=== PATIENT | female | born 1950 | race Caucasian/White ===

== ENCOUNTER → 2017-07-17 | Outpatient (CLI) | payer MEDICARE ==
--- NOTE | 2017-07-17 10:08 | WOMENS IMAGING REPORT ---
EXAM DESCRIPTION: BONE DENSITY HIP/SPINE COMPLETED DATE/TIME: 07/17/2017 8:26 am REASON FOR STUDY: OSTEOPOROSIS Z12.31 ENCNTR SCREEN MAMMOGRAM FOR MALIGNANT NEOPLASM OF CLAIRE M81.0 AGE-RELATED OSTEOPOROSIS W/O CURRENT PATHOLOGICAL FRAC COMPARISON: None. TECHNIQUE: Dual-Energy X-ray Absorptiometry (DEXA) of the AP Spine and Hip. LIMITATIONS: None. FINDINGS: LUMBAR SPINE: The bone mineral density (BMD) measured from L1-L4 in the AP projection correlates with a T-score of -3.1, which is osteoporosis as defined by the World Health Organization. HIP: The bone mineral density (BMD) measured in the left hip correlates with a T-score of -3.2, which is o steoporosis as defined by the World Health Organization. IMPRESSION: 1. LUMBAR SPINE: OSTEOPOROSIS. 2. HIP: OSTEOPOROSIS. COMMENT: The World Health Organization defines low BMD as follows: T-score: Normal: Greater than -1.0 Osteopenia: Between -1.0 and -2.5 Osteoporosis: Less than -2.5 without fractures Established osteoporosis: Less than -2.5 with fractures In general, you may wish to consider: Diagnosis Treatment Follow-up DEXA Normal BMD Prevention 2-3 years Osteopenia Prevention/Therapy 1-2 years Osteoporosis Therapy Yearly TECHNICAL DOCUMENTATION: JOB ID: [id number]- All Rights Reserved
== END ==
LOC: WI 08:03
PROVIDERS: ATTEND Physician Assistant
DX: M81.0 Age-related osteoporosis without current pathological fracture (principal)
CPT/HCPCS: 77080

== ENCOUNTER → 2017-07-24 | Outpatient (CLI) | payer MEDICARE ==
--- NOTE | 2017-07-24 10:42 | RADIOLOGY REPORT (SQ) ---
EXAM DESCRIPTION: U/S ABD AORTIC SCREENING COMPLETED DATE/TIME: 07/24/2017 10:32 am REASON FOR STUDY: TOBACCO USE (Z72.0), PERSONAL HX OF NICOTINE DEPENCENCE (Z87.891) Z72.0 TOBACCO U SE Z87.891 PERSONAL HISTORY OF NICOTINE DEPENDENCE Z12.31 ENCNTR SCREEN MAMMOGRAM FOR MALIGNANT EVERARDO PLASM OF CLAIRE COMPARISON: None. TECHNIQUE: Static and dynamic grayscale images acquired of the aorta and stored on PACs. Selected co elena Doppler and spectral images recorded. LIMITATIONS: None. FINDINGS: AORTIC CALIBER MAXIMAL PROXIMAL: 2.2 cm. MID: 2.1 cm. DISTAL: 1.4 cm. ILIAC DIAMETER RIGHT: 1 cm. LEFT: 0.9 cm. OTHER: No other significant finding. IMPRESSION: NO ABDOMINAL AORTIC ANEURYSM. TECHNICAL DOCUMENTATION: JOB ID: [id number] [employer]- All Rights Reserved
--- NOTE | 2017-07-24 12:15 | RADIOLOGY REPORT (SQ) ---
EXAM DESCRIPTION: CT LUNG CANCER SCREENING COMPLETED DATE/TIME: 07/24/2017 9:30 am REASON FOR STUDY: TOBACCO US (Z72.0), PERSONAL HX OF NICOTINE DEPENDENCE (Z87.891) Z72.0 TOBACCO US E Z87.891 PERSONAL HISTORY OF NICOTINE DEPENDENCE Z12.31 ENCNTR SCREEN MAMMOGRAM FOR MALIGNANT NEOP LASM OF CLAIRE Has the patient had a Chest CT scan within the past year? No Was the patient offered tobacco cessation counseling? Yes Was the patient engaged in shared decision making for this test? Yes Does the patient have signs or symptoms of Lung Cancer? No Is the patient a smoker? yes How many packs per year? 730 How many years since quitting smoking? Not applicable or Patients age: 67 COMPARISON: No previous TECHNIQUE: Low Dose CT scan performed of the chest without intravenous contrast for purposes of scre ening for lung cancer. Images reviewed with lung, soft tissue and bone windows. Reconstructed coron al and sagittal MPR images reviewed. All images stored on PACS. All CT scanners at this facility use dose modulation, iterative reconstruction, and/or weight based d osing when appropriate to reduce radiation dose to as low as reasonably achievable (ALARA). [facility]: Dose Right [facility]: CareDose [facility]: Dose Right [facility]: Teradose 4D [facility]: Smart Technologies RADIATION DOSE: Up-to-date CT equipment and radiation dose reduction techniques were employed. CTDIv ol: 2.0 mGy. DLP: 76 mGy-cm. mGy. . LIMITATIONS: No technical limitations. FINDINGS: LUNG NODULES: No lung nodules are identified REMAINING LUNGS AND PLEURA: There is moderate obstructive lung disease, with enlarged airspaces most pronounced in the upper lobes bilaterally. No pleural effusions or calcifications. No pneumothorax . No scarring or interstitial changes. HILAR AND MEDIASTINAL STRUCTURES: No identified masses. No abnormal nodes. HEART AND VASCULAR STRUCTURES: No aortic aneurysm. No pericardial effusion. No cardiac devices. CORONARY ARTERY CALCIFICATIONS: Mild to moderate calcifications. UPPER ABDOMEN, THYROID, BONES, OTHER SOFT TISSUES: No significant findings. IMPRESSION: Obstructive lung disease No worrisome nodules LUNGRADS: LUNGRADS: 1 no worrisome pulmonary nodules. Obstructive lung disease is present. MODIFIER: NONE. RECOMMENDATION: Continue annual screening with LDCT in 12 months. COMMENT: CRITERIA: Solid nodule(s): < 6 mm; new < 4 mm. Part solid nodule(s): < 6 mm total diameter on baseline screening. Non solid nodule(s) (GGN): < 20 mm OR ? 20 and unchanged or slowly growing. Category 3 or 4 modules unchanged for ? 3 months. TECHNICAL DOCUMENTATION: JOB ID: [id number] Quality ID # [id number]: Final reports with documentation of one or more dose reduction techniques (e.g., Au tomated exposure control, adjustment of the mA and/or kV according to patient size, use of iterative reconstruction technique) 2010 [employer]
--- NOTE | 2017-07-24 18:22 | WOMENS IMAGING REPORT ---
EXAM DESCRIPTION: 3D SCREENING MAMMO BILAT COMPLETED DATE/TIME: 07/24/2017 7:47 am REASON FOR STUDY: SCREENING MAMMO Z72.0 TOBACCO USE Z87.891 PERSONAL HISTORY OF NICOTINE DEPENDENC E Z12.31 ENCNTR SCREEN MAMMOGRAM FOR MALIGNANT NEOPLASM OF CLAIRE COMPARISON: None available TECHNIQUE: Standard craniocaudal and mediolateral oblique views of each breast recorded using digita l acquisition and breast tomosynthesis. LIMITATIONS: None. FINDINGS: No masses, calcifications or architectural distortion. No areas of suspicion. Read with the assistance of CAD. .[facility] - R2 [employer] Version 1.3 .[facility] - R2 Cenova Version 1.3 .[facility] - R2 Cenova Version 2.4 .[place] - R2 Cenova Version 2.4 .[facility] - R2 Bread Room Hand Version 9.2 IMPRESSION: NORMAL MAMMOGRAM. BIRADS 1. BREAST DENSITY: b. There are scattered areas of fibroglandular density. BIRAD: 1 NEGATIVE RECOMMENDATION: ROUTINE SCREENING Please continue yearly bilateral screening tomosynthesis in July 2018 COMMENT: The patient has been notified of the results by letter per [place] requirements. Additional no tification policies are in place for contacting patient with suspicious or incomplete findings. Quality ID #[id number]: The [employer] recommends an annual screening mammogram for women aged 40 years or over. This facility utilizes a reminder system to ensure that all patients receive reminder letters, and/or direct phone calls for appointments. This includes reminders for routine scr eening mammograms, diagnostic mammograms, or other Breast Imaging Interventions when appropriate. Th is patient will be placed in the appropriate reminder system. The [employer] (ACR) has developed recommendations for screening MRI of the breast s in certain patient populations, to be used in conjunction with mammography. Breast MRI surveillanc e may be appropriate for women with more than 20% lifetime risk of developing breast cancer as deter mined by genetic testing, significant family history of the disease, or history of mantle radiation f or Hodgkins Disease. ACR Practice Guidelines 2008. DBT Technology DBT is a type of tomographic mammography. With conventional mammography, overlapping breast tissue ma y make lesions difficult to detect, even with good compression. DBT uses an x-ray tube that rotates a round the breast, taking images at different angles. These images are then combined to create thin sl ices of the breast that the radiologist can view as a 3D reconstruction. The [employer] unit can perform full-field digital mammograms (2D imaging); or DBT (3D imaging); or both, in a combination mode that quickly performs both the mammogram and the tomosynthesis scan while the breast is still compressed. PQRS 6045F: Fluoroscopic imaging is not utilized for breast tomosynthesis. TECHNICAL DOCUMENTATION: FINDING NUMBER: (1) ASSESSMENT: (1) JOB ID: [id number] [employer]- All Rights Reserved
== END ==
LOC: RAD 07:28
PROVIDERS: ATTEND Physician Assistant
DX: Z12.2 Encounter for screening for malignant neoplasm of respiratory organs (principal); Z87.891 Personal history of nicotine dependence; Z12.31 Encounter for screening mammogram for malignant neoplasm of breast; J43.9 Emphysema, unspecified
CPT/HCPCS: 76706; 77063; G0297; G0202; 77067

== ENCOUNTER → 2018-09-03 | Outpatient (CLI) | payer MEDICARE ==
--- NOTE | 2018-09-03 09:14 | WOMENS IMAGING REPORT ---
EXAM DESCRIPTION: U/S ABDOMEN LIMITED COMPLETED DATE/TIME: 09/03/2018 8:52 am REASON FOR STUDY: R94.5 ABNORMAL RESULTS OF LIVER FUNCTION STUDIES R94.5 ABNORMAL RESULTS OF LIVER FUNCTION STUDIES COMPARISON: None. TECHNIQUE: Dynamic and static grayscale images acquired of the abdomen and recorded on PACS. Additio nal selected color Doppler and spectral images recorded. LIMITATIONS: None. FINDINGS: PANCREAS: No masses. Visualized pancreatic duct normal caliber. LIVER: Fatty liver. The liver measures 15.1 cm in length, normal size. LIVER VASCULATURE: Normal directional flow of the main portal vein and hepatic veins. GALLBLADDER: No stones. The gallbladder wall measures 1.5 mm, normal wall thickness. No pericholecys tic fluid. ULTRASOUND-DETECTED KINNEY'S SIGN: Negative. INTRAHEPATIC DUCTS AND COMMON DUCT: CBD measures 2.7 mm in diameter, normal. The intrahepatic ducts normal caliber. No filling defects. INFERIOR VENA CAVA: Normal flow. AORTA: No aneurysm. RIGHT KIDNEY: The right kidney measures 10.2 x 4.6 x 5.0 cm, normal size. Normal echogenicity. No so lid or suspicious masses. No hydronephrosis. No calcifications. PERITONEAL AND RIGHT PLEURAL SPACE: No ascites or effusions. OTHER: No other significant findings. IMPRESSION: 1. Fatty liver. 2. Examination is otherwise unremarkable sonographically. TECHNICAL DOCUMENTATION: JOB ID: [id number]- All Rights Reserved Reading location - IP/workstation name: [email or web address]
== END ==
LOC: WI 08:17
PROVIDERS: ATTEND Family Medicine
DX: R94.5 Abnormal results of liver function studies (principal)
CPT/HCPCS: 76705

== ENCOUNTER 2019-05-19 19:46 | Observation (INO) | payer MEDICARE ==
--- NOTE | 2019-05-19 20:02 | ER Document Report ---
ED Medical Screen (RME) - General Chief Complaint: Skin Problem Stated Complaint: MIDDLE FINGER PAIN Time Seen by Provider: 05/19/19 19:54 Primary Care Provider: DOMINGA RODRIGUEZ MD [Primary Care Provider] - Follow up as needed Information source: Patient Notes: pt reports gardening with gloves on yesterday. Patient denies any injury to the hand. Patient suspects that in insect may have stung her on the finger yesterday. Patient presents with discoloration to the right third finger with swelling and erythema that extends up to the level of her wrist. Patient's tetanus immunization is currently up-to-date. Patient did not actually see an insect in her glove but thought that this might be the cause of her symptoms. I have greeted and performed a rapid initial assessment of this patient. A comprehensive ED assessment and evaluation of the patient, analysis of test results and completion of the medical decision making process will be conducted by additional ED providers. TRAVEL OUTSIDE OF THE [place] IN LAST 30 DAYS: No Physical Exam - Vital signs Vitals: Temp Pulse Resp BP Pulse Ox 98.0 F 84 18 147/75 H 99 05/19/19 19:51 05/19/19 19:51 05/19/19 19:51 05/19/19 19:51 05/19/19 19:51 - Skin Skin Color: Erythema - Erythema to right hand, ecchymosis and weeping to the right third finger Course - Vital Signs Vital signs: Temp Pulse Resp BP Pulse Ox 98.0 F 84 18 147/75 H 99 05/19/19 19:51 05/19/19 19:51 05/19/19 19:51 05/19/19 19:51 05/19/19 19:51 Doctor's Discharge - Discharge Referrals: DOMINGA RODRIGUEZ MD [Primary Care Provider] - Follow up as needed
--- NOTE | 2019-05-19 20:12 | ER Document Report ---
HPI - HPI Time Seen by Provider: 05/19/19 19:54 Pain Level: 5 Notes: Patient is a 69-year-old female with no significant past medical history aside from allergies and hypercholesterolemia who presents complaining of right third finger swelling and some discomfort/pain since yesterday. Patient states that she was working with some plants at the time, but was trying to wear gloves throughout it. Patient is not sure if she got bit by something, but started noticing some soreness/irritation last night and then today noticed that her finger had swollen and was draining clear to pink drainage. Patient states that she has noticed some progression of the swelling into her hand. Patient states that the posterior finger is primarily affected. Denies drug allergies or history of MRSA. She is otherwise able to eat and drink without difficulty. She is urinating normally. She feels well otherwise. Denies any headache, fever, neck pain, URI, sore throat, chest pain, palpitations, syncope, cough, shortness of breath, wheeze, dyspnea, abdominal pain, nausea/vomiting/diarrhea, urinary retention, dysuria, hematuria, loss of control of bowel or bladder, numbness/tingling, muscle paralysis/weakness. - ROS Systems Reviewed and Negative: Yes All other systems reviewed and negative Past Medical History - General Information source: Patient - Social History Smoking Status: Never Smoker Family History: Reviewed & Not Pertinent Vertical Provider Document - CONSTITUTIONAL Agree With Documented VS: Yes Notes: PHYSICAL EXAMINATION: GENERAL: Well-appearing, well-nourished and in no acute distress. HEAD: Atraumatic, normocephalic. NECK: Normal range of motion, supple without lymphadenopathy. No midline tenderness. LUNGS: Breath sounds clear to auscultation bilaterally and equal. No wheezes rales or rhonchi. HEART: Regular rate and rhythm without murmurs, rubs, gallops. Musculoskeletal: Rt hand/wrist: N/V intact distal. LROM to passive/active to flexion 3rd digit due to swelling, not discomfort anteriorly. Strength 5+/5 to chair and couch maker. No scaphoid tenderness. No other bony tenderness. + hemorrhagic rash noted to the proximal posterior digit with swelling to the PIP joint area with clear discharge and weeping, occ pink discharge. + mild erythema noted. The dorsal hand has trace pitting edema associated with erythema/warmth. Extremities: No cyanosis, clubbing, or edema b/l. Peripheral pulses 2+. Capillary refill less than 3 seconds. NEUROLOGICAL: Normal speech, normal gait. Normal sensory, motor exams otherwise unremarkable PSYCH: Normal mood, normal affect. SKIN: see above. - INFECTION CONTROL TRAVEL OUTSIDE OF THE [place] IN LAST 30 DAYS: No Course - Re-evaluation Re-evalutation: 05/19/19 20:[address] Deluca who also eval'd the patient. Hemorrhagic swelling/infection to finger with swelling and slight tracking of the hand. We will start unasyn. Waiting for completed blood work and imaging. Consider admit. 05/19/19 22:07 Pt is an afebrile, well-hydrated, 69-year-old female who presents with extensive cellulitis to her right third digit with mild tracking and subsequent swelling to the dorsal hand. Vitals are acceptable without significant tachycardia, tachypnea, or hypoxia. PE is otherwise unremarkable. CBC shows elevated white blood cell count. X-ray shows swelling. Patient was given IV Unasyn. She is otherwise nontoxic-appearing and is able to tolerate p.o. without difficulty. I did place a call to Dr. Rodriguez for admission. 05/19/19 22:20 Dr. Rodriguez accepted to Tele. I spoke with Logan Tariq, who will consult in the morning with the patient. - Vital Signs Vital signs: Temp Pulse Resp BP Pulse Ox 98.0 F 84 18 147/75 H 99 05/19/19 19:51 05/19/19 19:51 05/19/19 19:51 05/19/19 19:51 05/19/19 19:51 - Laboratory Result Diagrams: 05/19/19 20:17 05/19/19 20:17 Discharge - Discharge Clinical Impression: Cellulitis of finger of right hand Condition: Stable Disposition: ADMITTED INPATIENT Admitting Provider: Vel Referrals: DOMINGA RODRIGUEZ MD [Primary Care Provider] - Follow up as needed
[2019-05-19 20:34] LABS: ABSOLUTE BASOPHILS # (AUTO) 0.1 10^3/uL (0.0-0.2); ABSOLUTE EOSINOPHILS # (AUTO) 0.9 10^3/uL (0.0-0.6); ABSOLUTE LYMPHOCYTES (AUTO) 2.4 10^3/uL (0.5-4.7); ABSOLUTE MONOCYTES (AUTO) 0.9 10^3/uL (0.1-1.4); ABSOLUTE NEUT (AUTO) 7.8 10^3/uL (1.7-8.2); BASOPHILS % (AUTO) 0.6 % (0-2); EOSINOPHILS % (AUTO) 7.4 % (0-6); HEMATOCRIT 42.9 % (36.0-47.0); HEMOGLOBIN 14.6 g/dL (12.0-15.5); LYMPHOCYTES % (AUTO) 19.9 % (13-45); MEAN CORPUSCULAR HEMOGLOBIN 36.2 pg (27.0-33.4); MEAN CORPUSCULAR HGB CONC 33.9 g/dL (32.0-36.0); MEAN CORPUSCULAR VOLUME 107 fl (80-97); MONOCYTES % (AUTO) 7.8 % (3-13); PLATELET COUNT 340 10^3/uL (150-450); RED BLOOD COUNT 4.03 10^6/uL (3.72-5.28); RED CELL DISTRIBUTION WIDTH 14.9 % (11.5-14.0); SEGMENTED NEUTROPHILS % (AUTO) 64.3 % (42-78); TOTAL CELLS COUNTED % (AUTO) 100 %; WHITE BLOOD COUNT 12.1 10^3/uL (4.0-10.5)
[2019-05-19] MEDS ORDERED: AMPICILLIN SOD/SULBACTAM 1.5 GM VIAL IV ONE (20:44)
[2019-05-19] MEDS ORDERED: AMPICILLIN SOD/SULBACTAM 3 GM VIAL IV ONE (20:45)
[2019-05-19 20:58] LABS: ALBUMIN 4.8 g/dL (3.5-5.0); ALKALINE PHOSPHATASE 92 U/L (38-126); ANION GAP 10 (5-19); ASPARTATE AMINO TRANSFERASE 24 U/L (14-36); BILIRUBIN,DIRECT 0.4 mg/dL (0.0-0.4); BILIRUBIN,TOTAL 0.8 mg/dL (0.2-1.3); BLOOD UREA NITROGEN 15 mg/dL (7-20); CALCIUM 10.9 mg/dL (8.4-10.2); CARBON DIOXIDE 27 mmol/L (22-30); CHLORIDE 104 mmol/L (98-107); GLUCOSE 98 mg/dL (75-110); POTASSIUM 4.1 mmol/L (3.6-5.0); TOTAL PROTEIN 7.8 g/dL (6.3-8.2)
--- NOTE | 2019-05-19 21:59 | RADIOLOGY REPORT (SQ) ---
3 VIEWS OF RIGHT HAND EXAM DATE: 05/19/2019 8:00 PM CDT HISTORY: Hand infection, swollen r 3rd finger. COMPARISON: None. FINDINGS: No acute fracture or dislocation is seen. There is a chronic deformity of the distal phalanx of the thumb with multiple well-corticated ossific fragments. The joint spaces are preserved. The soft tissues are swollen. There is no cortical erosion or periosteal reaction to suggest acute osteomyelitis. No radiopaque foreign body is identified. IMPRESSION: 1. Diffuse swelling of the third digit. 2. No acute fracture or osteomyelitis. 3. Chronic appearing deformity of the distal phalanx of the thumb.
[2019-05-19] MEDS ORDERED: ACETAMINOPHEN 325 MG TABLET PO PRN (22:12)
[2019-05-19] MEDS ORDERED: AMPICILLIN SOD/SULBACTAM 3 GM VIAL IV PRN (22:23)
[2019-05-20] MEDS ORDERED: AMPICILLIN SOD/SULBACTAM 3 GM VIAL ONE (03:23)
[2019-05-20] MEDS: AMPICILLIN SODIUM/SULBACTAM NA 3 GM in NORMAL SALINE 100 ML IV SCH ×4 (03:41→20:10)
[2019-05-20 04:40] LABS: ABSOLUTE EOSINOPHILS # (AUTO) 0.8 10^3/uL (0.0-0.6); ABSOLUTE LYMPHOCYTES (AUTO) 1.9 10^3/uL (0.5-4.7); ABSOLUTE MONOCYTES (AUTO) 0.9 10^3/uL (0.1-1.4); ABSOLUTE NEUT (AUTO) 4.8 10^3/uL (1.7-8.2); BASOPHILS % (AUTO) 0.6 % (0-2); EOSINOPHILS % (AUTO) 9.3 % (0-6); HEMATOCRIT 36.3 % (36.0-47.0); LYMPHOCYTES % (AUTO) 22.4 % (13-45); MEAN CORPUSCULAR HEMOGLOBIN 36.2 pg (27.0-33.4); MEAN CORPUSCULAR HGB CONC 34.2 g/dL (32.0-36.0); MEAN CORPUSCULAR VOLUME 106 fl (80-97); MONOCYTES % (AUTO) 10.5 % (3-13); PLATELET COUNT 276 10^3/uL (150-450); RED BLOOD COUNT 3.43 10^6/uL (3.72-5.28); RED CELL DISTRIBUTION WIDTH 14.4 % (11.5-14.0); SEGMENTED NEUTROPHILS % (AUTO) 57.2 % (42-78); TOTAL CELLS COUNTED % (AUTO) 100 %; WHITE BLOOD COUNT 8.3 10^3/uL (4.0-10.5)
[2019-05-20 04:45] LABS: HEMOGLOBIN 12.4 g/dL (12.0-15.5)
[2019-05-20 04:57] LABS: ALBUMIN 3.3 g/dL (3.5-5.0); ALKALINE PHOSPHATASE 62 U/L (38-126); ANION GAP 6 (5-19); ASPARTATE AMINO TRANSFERASE 17 U/L (14-36); BILIRUBIN,DIRECT 0.2 mg/dL (0.0-0.4); BILIRUBIN,TOTAL 0.7 mg/dL (0.2-1.3); BLOOD UREA NITROGEN 13 mg/dL (7-20); CALCIUM 9.4 mg/dL (8.4-10.2); CARBON DIOXIDE 25 mmol/L (22-30); CHLORIDE 109 mmol/L (98-107); GLUCOSE 88 mg/dL (75-110); TOTAL PROTEIN 5.5 g/dL (6.3-8.2)
--- NOTE | 2019-05-20 07:56 | Progress Note ---
Provider Note Provider Note: Patient seen and examined this morning. Will discuss with my hand colleagues regarding further treatment. This appears to be potential infection versus reactive inflammation, possibly poison oak or poison shirin. -Current antibiotic regiment -I will follow for potential need of surgical management -Full Consult note pending -I Encouraged the patient to continue range of motion exercises every half hour
[2019-05-20] MEDS: ENOXAPARIN SODIUM INJ 40 MG/0.4 ML DISP.SYRIN SUBCUT SCH (09:30)
--- NOTE | 2019-05-20 10:47 | PDOC H&P ---
History of Present Illness Admission Date/PCP: 05/19/19 22:36 DOMINGA RODRIGUEZ MD Patient complains of: Right third finger cellulitis History of Present Illness: PETE PAIGE is a 69 year old female This is a 60-year-old female's with the only history of the hyperlipidemia and allergies pretty healthy was working outside in the plants with the gloves noticeRight third finger some swelling And a blisterAnd draining pink fluid and also noticed some pain on the right hand and the right forearm area Patient is came to the emergency department initial hand x-ray negative for any Osteomyelitis no fracture and patient's white count is slightly elevated Patient was started on IV Unasyn and decided to admit to the hospital When I saw the patient patient is denied any chest pain no short of breath no fever no chills Patient seen by the orthopedic surgery and suggest to continues to current management and he will talk to the hand surgeon Past Medical History Cardiac Medical History: Reports: Hyperlipidema Social History Information Source: Patient Smoking Status: Current Every Day Smoker Frequency of Alcohol Use: None Hx Recreational Drug Use: No Hx Prescription Drug Abuse: No Family History Family History: Reviewed & Not Pertinent Parental Family History Reviewed: Yes Children Family History Reviewed: Yes Sibling(s) Family History Reviewed.: Yes Medication/Allergy Home Medications: Acidoph/L.bulg/Bif.b/S.thermop [Bacid Caplet] 1 tab PO [facility] 05/20/19 Atorvastatin Calcium [Lipitor 20 mg Tablet] 20 mg PO [facility] 05/20/19 Calcium Carbonate [Calcium] 1,200 mg PO [facility] 05/20/19 Cetirizine HCl [Zyrtec 10 mg Tablet] 10 mg PO [facility] 05/20/19 Cholecalciferol (Vitamin D3) [Vitamin D3 2000 unit Tablet] 2,000 unit PO [facility] 05/20/19 Allergies/Adverse Reactions: codeine Allergy (Verified 05/19/19 20:20) Review of Systems Constitutional: ABSENT: chills, fever(s), headache(s), weight gain, weight loss Eyes: ABSENT: visual disturbances Ears: ABSENT: hearing changes Cardiovascular: ABSENT: chest pain, dyspnea on exertion, edema, orthropnea, palpitations Respiratory: ABSENT: cough, hemoptysis Gastrointestinal: ABSENT: abdominal pain, constipation, diarrhea, hematemesis, hematochezia, nausea, vomiting Genitourinary: ABSENT: dysuria, hematuria Musculoskeletal: ABSENT: joint swelling Integumentary: ABSENT: rash, wounds Neurological: ABSENT: abnormal gait, abnormal speech, confusion, dizziness, focal weakness, syncope Psychiatric: ABSENT: anxiety, depression, homidical ideation, suicidal ideation Endocrine: ABSENT: cold intolerance, heat intolerance, menstrual abnormalities, polydipsia, polyuria Hematologic/Lymphatic: ABSENT: easy bleeding, easy bruising, lymphadenopathy Physical Exam Vital Signs: Temp Pulse Resp BP Pulse Ox 97.7 F 64 16 151/93 H 97 05/20/19 08:00 05/20/19 08:00 05/20/19 08:00 05/20/19 08:00 05/20/19 08:00 Intake & Output 05/19/19 05/20/19 05/21/19 06:59 06:59 06:59 Intake Total 100 Balance 100 Weight 41.7 kg General appearance: PRESENT: no acute distress, well-developed, well-nourished Head exam: PRESENT: atraumatic, normocephalic Eye exam: PRESENT: conjunctiva pink, EOMI, PERRLA. ABSENT: scleral icterus Ear exam: PRESENT: normal external ear exam Mouth exam: PRESENT: moist, tongue midline Neck exam: PRESENT: full ROM. ABSENT: carotid bruit, JVD, lymphadenopathy, thyromegaly Respiratory exam: PRESENT: clear to auscultation nataliya Cardiovascular exam: PRESENT: RRR. ABSENT: diastolic murmur, rubs, systolic murmur Pulses: PRESENT: normal dorsalis pedis pul, +2 pedal pulses bilateral Vascular exam: PRESENT: normal capillary refill GI/Abdominal exam: PRESENT: normal bowel sounds, soft. ABSENT: distended, guarding, mass, organolmegaly, rebound, tenderness Rectal exam: PRESENT: deferred Additional comments: Right third finger swelling and a mild redness and has some hemorrhages blisters seen Neurological exam: PRESENT: alert, awake, oriented to person, oriented to place, oriented to time, oriented to situation, CN II-XII grossly intact. ABSENT: motor sensory deficit Psychiatric exam: PRESENT: appropriate affect, normal mood. ABSENT: homicidal ideation, suicidal ideation Skin exam: PRESENT: dry, intact, warm. ABSENT: cyanosis, rash Results Laboratory Results: 05/20/19 04:14 05/20/19 04:14 05/19/19 05/19/19 05/20/19 20:17 20:17 04:14 WBC 12.1 H 8.3 RBC 4.03 3.43 L Hgb 14.6 12.4 D Hct 42.9 36.3 MCV 107 H 106 H MCH 36.2 H 36.2 H MCHC 33.9 34.2 RDW 14.9 H 14.4 H Plt Count 340 276 Seg Neutrophils % 64.3 57.2 Sodium 140.7 Potassium 4.1 Chloride 104 Carbon Dioxide 27 Anion Gap 10 BUN 15 Creatinine 0.75 Est GFR ( Amer) > 60 Glucose 98 Calcium 10.9 H Total Bilirubin 0.8 AST 24 Alkaline Phosphatase 92 C-Reactive Protein Total Protein 7.8 Albumin 4.8 05/20/19 05/20/19 04:14 04:14 WBC RBC Hgb Hct MCV MCH MCHC RDW Plt Count Seg Neutrophils % Sodium 139.8 Potassium 4.0 Chloride 109 H Carbon Dioxide 25 Anion Gap 6 BUN 13 Creatinine 0.55 Est GFR ( Amer) > 60 Glucose 88 Calcium 9.4 Total Bilirubin 0.7 AST 17 Alkaline Phosphatase 62 C-Reactive Protein 10.0 Total Protein 5.5 L Albumin 3.3 L Impressions: Hand X-Ray 05/19/19 20:00 IMPRESSION: 1. Diffuse swelling of the third digit. 2. No acute fracture or osteomyelitis. 3. Chronic appearing deformity of the distal phalanx of the thumb. Assessment & Plan - Diagnosis (1) Cellulitis of finger of right hand Is this a current diagnosis for this admission?: Yes Plan: Continues to IV antibiotic Continues to follow with the orthopedic surgery (2) Hyperlipidemia Qualifiers: Hyperlipidemia type: unspecified Qualified Code(s): E78.5 - Hyperlipidemia, unspecified Is this a current diagnosis for this admission?: No - Time Time Spent: 30 to 50 Minutes Medications reviewed and adjusted accordingly: Yes Anticipated discharge: Home Within: Other - Inpatient Certification Based on my medical assessment, after consideration of the patient's comorbidities, presenting symptoms, or acuity I expect that the services needed warrant INPATIENT care.: Yes I certify that my determination is in accordance with my understanding of Medicare's requirements for reasonable and necessary INPATIENT services [42 CFR 412.3e].: Yes Medical Necessity: Significant Comorbidiites Make Outpatient Treatment Too Risky, Need Close Monitoring Due to Risk of Patient Decompensation, Need for IV Antibiotics Post Hospital Care: D/C Physician Practice Consultant Documentation - Plan Summary Plan Summary: See MD orders
--- NOTE | 2019-05-20 18:19 | PDOC CONSULTATION ---
Consultation Consult Date: 05/20/19 Provider Consulted: USMAN BLANK JR History of Present Illness Admission Date/PCP: 05/19/19 22:36 DOMINGA RODRIGUEZ MD History of Present Illness: PETE PAIGE is a 69 year old female seen and evaluated in the hospital this morning. She was gardening 2 days ago when she felt an itch inside a glove and removed her glove and noticed some irritation. Over the course of the next 2 days the dorsum of her third finger became more macerated erythematous and began draining serous fluid. She has difficulty with full range of motion and has pain at the extremes pain is mild when resting though swelling is uncomfortable. Currently pain is a 3 out of 10. She has no recent fevers chills night sweats nausea vomiting, no associated symptoms or other locations of illness. Past Medical History Cardiac Medical History: Reports: Hyperlipidema Social History Smoking Status: Current Every Day Smoker Frequency of Alcohol Use: None Hx Recreational Drug Use: No Hx Prescription Drug Abuse: No Family History Family History: Reviewed & Not Pertinent Parental Family History Reviewed: No Children Family History Reviewed: No Sibling(s) Family History Reviewed.: No Medication/Allergy Home Medications: Acidoph/L.bulg/Bif.b/S.thermop [Bacid Caplet] 1 tab PO [facility] 05/20/19 Atorvastatin Calcium [Lipitor 20 mg Tablet] 20 mg PO [facility] 05/20/19 Calcium Carbonate [Calcium] 1,200 mg PO [facility] 05/20/19 Cetirizine HCl [Zyrtec 10 mg Tablet] 10 mg PO [facility] 05/20/19 Cholecalciferol (Vitamin D3) [Vitamin D3 2000 unit Tablet] 2,000 unit PO [facility] 05/20/19 Allergies/Adverse Reactions: codeine Allergy (Verified 05/19/19 20:20) Review of Systems Review of Systems: Constitutional: ABSENT: anorexia, chills, night sweats Cardiovascular: ABSENT: chest pain Respiratory: ABSENT: dyspnea Gastrointestinal: ABSENT: vomiting Genitourinary: ABSENT: dysuria Integumentary: ABSENT: rash Neurological: ABSENT: confusion, memory loss, numbness Psychiatric: ABSENT: hallucinations Hematologic/Lymphatic: ABSENT: easy bleeding All negative as above aside from that reported in the HPI and the following: Right third finger swelling Physical Exam Vital Signs: Temp Pulse Resp BP Pulse Ox 98.4 F 56 L 16 148/70 H 97 05/20/19 11:59 05/20/19 15:00 05/20/19 11:59 05/20/19 11:59 05/20/19 11:59 Intake & Output 05/19/19 05/20/19 05/21/19 06:59 06:59 06:59 Intake Total 300 Balance 300 Weight 41.7 kg Physical Exam: General appearance: PRESENT: no acute distress, cooperative, well-nourished Head exam: PRESENT: atraumatic, normocephalic Eye exam: PRESENT: EOMI Ear exam: PRESENT: normal external ear exam Mouth exam: PRESENT: neck supple Neck exam: ABSENT: tracheal deviation Respiratory exam: PRESENT: symmetrical, unlabored. ABSENT: accessory muscle use, wheezes Pulses: PRESENT: normal radial pulses, normal dorsalis pedis pul Vascular exam: PRESENT: normal capillary refill GI/Abdominal exam: ABSENT: distended, firm Extremities exam: PRESENT: full ROM Musculoskeletal exam: PRESENT: full ROM, normal inspection Neurological exam: PRESENT: alert, awake, oriented to person, oriented to place, oriented to time Psychiatric exam: PRESENT: appropriate affect. ABSENT: agitated Focused psych exam: ABSENT: catatonic Skin exam: PRESENT: intact. ABSENT: dry All as above aside from that noted in the HPI and the following: Right upper extremity exam reveals a right third digit with dorsal maceration erythema and diffuse swelling. She has passive range of motion that is painless up to extremes. range of motion is restricted due to diffuse swelling. The erythematous area was marked out with a marking pen. Sensation is maintained throughout the hand as well as motor function. She has active range of motion without severe pain aside from extremes. Capillary refill is within normal limits there is no proximal erythematous tracking or signs of lymphangitis. There is no palpable fluctuance or appreciable collection to be drained at this time Results Laboratory Results: 05/20/19 04:14 05/20/19 04:14 05/19/19 05/19/19 05/20/19 20:17 20:17 04:14 WBC 12.1 H 8.3 RBC 4.03 3.43 L Hgb 14.6 12.4 D Hct 42.9 36.3 MCV 107 H 106 H MCH 36.2 H 36.2 H MCHC 33.9 34.2 RDW 14.9 H 14.4 H Plt Count 340 276 Seg Neutrophils % 64.3 57.2 Sodium 140.7 Potassium 4.1 Chloride 104 Carbon Dioxide 27 Anion Gap 10 BUN 15 Creatinine 0.75 Est GFR ( Amer) > 60 Glucose 98 Calcium 10.9 H Total Bilirubin 0.8 AST 24 Alkaline Phosphatase 92 C-Reactive Protein Total Protein 7.8 Albumin 4.8 05/20/19 05/20/19 04:14 04:14 WBC RBC Hgb Hct MCV MCH MCHC RDW Plt Count Seg Neutrophils % Sodium 139.8 Potassium 4.0 Chloride 109 H Carbon Dioxide 25 Anion Gap 6 BUN 13 Creatinine 0.55 Est GFR ( Amer) > 60 Glucose 88 Calcium 9.4 Total Bilirubin 0.7 AST 17 Alkaline Phosphatase 62 C-Reactive Protein 10.0 Total Protein 5.5 L Albumin 3.3 L Impressions: Hand X-Ray 05/19/19 20:00 IMPRESSION: 1. Diffuse swelling of the third digit. 2. No acute fracture or osteomyelitis. 3. Chronic appearing deformity of the distal phalanx of the thumb. Assessment & Plan - Diagnosis (2) Cellulitis of finger of right hand Is this a current diagnosis for this admission?: Yes Plan: At this time the patient has an exam consistent with either cellulitis or skin necrosis from an insect bite such as a brown recluse. This looks more blistered and hemorrhagic noninfected we will monitor the peripheral skin marking. I expect the superficial skin may slough over the course the next day or so and we may need to unroof the underlying dermis. Once unroofed we will continue bacitracin and topical wound care. Additionally I would suggest 20 mg of prednisone twice daily.
[2019-05-20] MEDS: PREDNISONE 20 MG TABLET PO SCH (20:09)
[2019-05-21] MEDS: AMPICILLIN SODIUM/SULBACTAM NA 3 GM in NORMAL SALINE 100 ML IV SCH ×2 (02:06→10:11)
--- NOTE | 2019-05-21 08:33 | PDOC PROGRESS REPORT ---
Subjective Progress Note for:: 05/21/19 Subjective:: Patient is feeling much better Patient have mild debridement yesterday by Ortho on the wound side most likely an skin necrosis due to the insect bites After giving the prednisone patient is swelling and itching is pretty much all resolved Patient up-to-date with the tetanus vaccines Reason For Visit: CELLULITIS Physical Exam Vital Signs: Temp Pulse Resp BP Pulse Ox 97.9 F 47 L 16 158/86 H 95 05/21/19 00:03 05/21/19 02:00 05/21/19 00:03 05/21/19 00:03 05/21/19 00:03 Intake & Output 05/20/19 05/21/19 05/22/19 06:59 06:59 06:59 Intake Total 1247 Balance 1247 Weight 41.7 kg 44.7 kg General appearance: PRESENT: no acute distress, well-developed, well-nourished Head exam: PRESENT: atraumatic, normocephalic Eye exam: PRESENT: conjunctiva pink, EOMI, PERRLA. ABSENT: scleral icterus Ear exam: PRESENT: normal external ear exam Mouth exam: PRESENT: moist, tongue midline Neck exam: PRESENT: full ROM. ABSENT: carotid bruit, JVD, lymphadenopathy, thyromegaly Respiratory exam: PRESENT: clear to auscultation nataliya Cardiovascular exam: PRESENT: RRR. ABSENT: diastolic murmur, rubs, systolic murmur Pulses: PRESENT: normal dorsalis pedis pul, +2 pedal pulses bilateral Vascular exam: PRESENT: normal capillary refill GI/Abdominal exam: PRESENT: normal bowel sounds, soft. ABSENT: distended, guarding, mass, organolmegaly, rebound, tenderness Rectal exam: PRESENT: deferred Additional comments: Right third finger hemorrhagic blister is pretty much resolved there is no redness after that finger swelling is also markedly reduced Neurological exam: PRESENT: alert, awake, oriented to person, oriented to place, oriented to time, oriented to situation, CN II-XII grossly intact. ABSENT: motor sensory deficit Psychiatric exam: PRESENT: appropriate affect, normal mood. ABSENT: homicidal ideation, suicidal ideation Skin exam: PRESENT: dry, intact, warm. ABSENT: cyanosis, rash Results Laboratory Results: 05/20/19 04:14 05/20/19 04:14 05/20/19 04:14 C-Reactive Protein 10.0 Impressions: Hand X-Ray 05/19/19 20:00 IMPRESSION: 1. Diffuse swelling of the third digit. 2. No acute fracture or osteomyelitis. 3. Chronic appearing deformity of the distal phalanx of the thumb. Assessment & Plan - Diagnosis (1) Cellulitis of finger of right hand Is this a current diagnosis for this admission?: Yes Plan: Most likely underlying skin necrosis due to the insect bites continues to prednisone and continues to antibiotic will continues to look on wound care per Ortho if the patient is remained stable if is okay with the Ortho patients can discharge tomorrow with the oral AugmentinAnd wound care per Ortho (2) Hyperlipidemia Qualifiers: Hyperlipidemia type: unspecified Qualified Code(s): E78.5 - Hyperlipidemia, unspecified Is this a current diagnosis for this admission?: No - Time Time Spent with patient: 15-24 minutes Medications reviewed and adjusted accordingly: Yes Anticipated discharge: Other Within: Other - Plan Summary Plan Summary: Continues to current medications
[2019-05-21] MEDS: ENOXAPARIN SODIUM INJ 40 MG/0.4 ML DISP.SYRIN SUBCUT SCH (10:10)
[2019-05-21] MEDS: PREDNISONE 20 MG TABLET PO SCH ×2 (10:11→17:43)
--- NOTE | 2019-05-21 17:29 | PDOC PROGRESS REPORT ---
Subjective Subjective:: The patient is doing well today, she explains that times is much improved. Including the dorsal swelling in her hand she feels is much improved. She does attribute this to her prednisone intake. She is in a good mood and hopeful for discharge tomorrow Reason For Visit: CELLULITIS Physical Exam Vital Signs: Temp Pulse Resp BP Pulse Ox 97.4 F 64 12 141/65 H 99 05/21/19 08:15 05/21/19 14:00 05/21/19 08:15 05/21/19 08:15 05/21/19 08:15 Intake & Output 05/20/19 05/21/19 05/22/19 06:59 06:59 06:59 Intake Total 1247 860 Balance 1247 860 Weight 41.7 kg 44.7 kg Physical Exam: General appearance: PRESENT: no acute distress, cooperative, well-nourished Head exam: PRESENT: atraumatic, normocephalic Eye exam: PRESENT: EOMI Ear exam: PRESENT: normal external ear exam Mouth exam: PRESENT: neck supple Neck exam: ABSENT: tracheal deviation Respiratory exam: PRESENT: symmetrical, unlabored. ABSENT: accessory muscle use, wheezes Pulses: PRESENT: normal radial pulses, normal dorsalis pedis pul Vascular exam: PRESENT: normal capillary refill GI/Abdominal exam: ABSENT: distended, firm Extremities exam: PRESENT: full ROM Musculoskeletal exam: PRESENT: full ROM, normal inspection Neurological exam: PRESENT: alert, awake, oriented to person, oriented to place, oriented to time Psychiatric exam: PRESENT: appropriate affect. ABSENT: agitated Focused psych exam: ABSENT: catatonic Skin exam: PRESENT: intact. ABSENT: dry All as above aside from that noted in the HPI and the following: Right upper extremity exam reveals a right third digit with dorsal maceration erythema. Swelling is improved. There is a central area of the lesion that is starting to flake off, the underlying dermis peers healthy. Is no extension past the prior marked area. Range of motion also seems to have improved the patient is actively able to range her hand without significant pain to near full range of motion. sensation is maintained throughout the hand as well as motor function. There is no palpable fluctuance or appreciable collection to be drained at this time Results Laboratory Results: 05/20/19 04:14 05/20/19 04:14 Impressions: Hand X-Ray 05/19/19 20:00 IMPRESSION: 1. Diffuse swelling of the third digit. 2. No acute fracture or osteomyelitis. 3. Chronic appearing deformity of the distal phalanx of the thumb. Assessment & Plan - Diagnosis (1) Skin necrosis Is this a current diagnosis for this admission?: Yes Plan: The patient's condition deems to be improving. I expect it will take a few more days for this to fully demarcate and slough off. At this time it does not seem to be progressing, and she may not need to remain in the hospital through the completion of her course. -If she is discharged and symptoms return, I am happy to see her in my office for follow-up. -May consider a Medrol Dosepak to go home with as the prednisone seems to have provided considerable benefit for her -I encouraged her to do hourly active range of motion of the hand to try to maintain and achieve full range of motion of the finger (2) Cellulitis of finger of right hand Is this a current diagnosis for this admission?: Yes
[2019-05-21] MEDS: LACTOBACILLUS ACIDOPHILUS 250 MG TAB PO SCH (17:43)
[2019-05-21] MEDS: NICOTINE 21 MG/24 HR PATCH.TD24 TD SCH (18:06)
[2019-05-21] MEDS: AMOXICILLIN TR/POT CLAVULANATE 500-125 MG TAB PO SCH (21:17)
[2019-05-22] MEDS: AMOXICILLIN TR/POT CLAVULANATE 500-125 MG TAB PO SCH (05:17)
--- NOTE | 2019-05-22 07:49 | PDOC PROGRESS REPORT ---
Subjective Subjective:: Patient doing well, no new symptoms. No new complaints. She feels she is improving Reason For Visit: CELLULITIS Physical Exam Vital Signs: Temp Pulse Resp BP Pulse Ox 98.4 F 73 16 155/79 H 96 05/21/19 23:53 05/22/19 02:00 05/21/19 23:53 05/21/19 23:53 05/21/19 23:53 Intake & Output 05/21/19 05/22/19 05/23/19 06:59 06:59 06:59 Intake Total 1247 860 Balance 1247 860 Weight 44.7 kg 44.4 kg Physical Exam: Continued resolution of the right middle finger swelling. The superficial necrotic skin has begun to slough off from the center and will likely continue to do so. Otherwise she is grossly neurovascularly in tact with full motor and sensory function. Results Laboratory Results: 05/20/19 04:14 05/20/19 04:14 Impressions: Hand X-Ray 05/19/19 20:00 IMPRESSION: 1. Diffuse swelling of the third digit. 2. No acute fracture or osteomyelitis. 3. Chronic appearing deformity of the distal phalanx of the thumb. Assessment & Plan - Diagnosis (1) Skin necrosis Is this a current diagnosis for this admission?: Yes Plan: I expect her skin to continue to declare itself and slowly slough off. Plan as per prior note. No changes. She is stable for discharge today per Ortho.. (2) Cellulitis of finger of right hand Is this a current diagnosis for this admission?: Yes
--- NOTE | 2019-05-22 08:38 | PDOC DISCHARGE SUMMARY ---
General - Admit/Disc Date/PCP Admission Date/Primary Care Provider: 05/19/19 22:36 DOMINGA RODRIGUEZ MD Discharge Date: 05/22/19 - Discharge Diagnosis (1) Cellulitis of finger of right hand Is this a current diagnosis for this admission?: Yes Summary: Currently all results most likely a skin necrosis rather than a cellulitis As per orthopedic suggest the continues to Medrol Dosepak and will be covered with antibiotics for the next 5 days (2) Hyperlipidemia Is this a current diagnosis for this admission?: No - Additional Information Discharge Diet: Cardiac Discharge Activity: Activity As Tolerated Prescriptions: Amox Tr/Potassium Clavulanate [Augmentin 875-125 mg Tablet] 1 tab PO BID #14 tablet Lactobacillus Acidophilus [Bacid 250 mg Tablet] 250 mg PO BID #14 tab Methylprednisolone [Medrol Dosepack (4 mg/Tab) 21 Tab/Dosepak] 4 mg PO ASDIR PRN #21 tab.ds.pk PRN Reason: Home Medications: Acidoph/L.bulg/Bif.b/S.thermop [Bacid Caplet] 1 tab PO [facility] 05/20/19 Atorvastatin Calcium [Lipitor 20 mg Tablet] 20 mg PO [facility] 05/20/19 Calcium Carbonate [Calcium] 1,200 mg PO [facility] 05/20/19 Cetirizine HCl [Zyrtec 10 mg Tablet] 10 mg PO [facility] 05/20/19 Cholecalciferol (Vitamin D3) [Vitamin D3 2000 unit Tablet] 2,000 unit PO [facility] 05/20/19 Amox Tr/Potassium Clavulanate [Augmentin 875-125 mg Tablet] 1 tab PO BID #14 tablet 05/22/19 Lactobacillus Acidophilus [Bacid 250 mg Tablet] 250 mg PO BID #14 tab 05/22/19 Methylprednisolone [Medrol Dosepack (4 mg/Tab) 21 Tab/Dosepak] 4 mg PO ASDIR PRN #21 tab.ds.pk 05/22/19 History of Present Illness History of Present Illness: PETE PAIGE is a 69 year old female This is a 60-year-old female's with the only history of the hyperlipidemia and allergies pretty healthy was working outside in the plants with the gloves noticeRight third finger some swelling And a blisterAnd draining pink fluid and also noticed some pain on the right hand and the right forearm area Patient is came to the emergency department initial hand x-ray negative for any Osteomyelitis no fracture and patient's white count is slightly elevated Patient was started on IV Unasyn and decided to admit to the hospital When I saw the patient patient is denied any chest pain no short of breath no fever no chills Patient seen by the orthopedic surgery and suggest to continues to current management and he will talk to the hand surgeon Hospital Course Hospital Course: This 69-year-old female present in the emergency department for some kind of insect bites below the globes while working outside and patient have a right third finger was a hemorrhagic blisters and the pain Patient was put on IV antibiotic to cover underlying cellulitis and orthopedic was consulted and a debridement of the finger and the culture did not show any growth of bacteria Patient was giving the steroid which much helps better some of the skin sloughing of Patients move the finger without any problems no fever no chills Orthopedic suggest to put the Medrol Dosepak and will continue the antibiotic for another 5 days Patient is to follow-up in 1 week Unless patient have any fever chills and increasing swelling pain following the ER Physical Exam Vital Signs: Temp Pulse Resp BP Pulse Ox 98.4 F 47 L 16 155/79 H 96 05/21/19 23:53 05/22/19 07:00 05/21/19 23:53 05/21/19 23:53 05/21/19 23:53 Intake & Output 05/21/19 05/22/19 05/23/19 06:59 06:59 06:59 Intake Total 1247 860 Balance 1247 860 Weight 44.7 kg 44.4 kg General appearance: PRESENT: no acute distress, well-developed, well-nourished Head exam: PRESENT: atraumatic, normocephalic Eye exam: PRESENT: conjunctiva pink, EOMI, PERRLA. ABSENT: scleral icterus Ear exam: PRESENT: normal external ear exam Mouth exam: PRESENT: moist, tongue midline Neck exam: PRESENT: full ROM. ABSENT: carotid bruit, JVD, lymphadenopathy, thyromegaly Respiratory exam: PRESENT: clear to auscultation nataliya Cardiovascular exam: PRESENT: RRR. ABSENT: diastolic murmur, rubs, systolic murmur Pulses: PRESENT: normal dorsalis pedis pul, +2 pedal pulses bilateral Vascular exam: PRESENT: normal capillary refill GI/Abdominal exam: PRESENT: normal bowel sounds, soft. ABSENT: distended, guarding, mass, organolmegaly, rebound, tenderness Rectal exam: PRESENT: deferred Additional comments: Thought fingers no swelling some mild skin necrosis is present Neurological exam: PRESENT: alert, awake, oriented to person, oriented to place, oriented to time, oriented to situation, CN II-XII grossly intact. ABSENT: motor sensory deficit Psychiatric exam: PRESENT: appropriate affect, normal mood. ABSENT: homicidal ideation, suicidal ideation Skin exam: PRESENT: dry, intact, warm. ABSENT: cyanosis, rash Results Laboratory Results: 05/20/19 04:14 05/20/19 04:14 Impressions: Hand X-Ray 05/19/19 20:00 IMPRESSION: 1. Diffuse swelling of the third digit. 2. No acute fracture or osteomyelitis. 3. Chronic appearing deformity of the distal phalanx of the thumb. Qualifiers - * PATIENT BEING DISCHARGED WITH ANY OF THE FOLLOWING DIAGNOSIS: No Acute Heart Failure - Is this a Heart Failure Patient?: No Plan Time Spent: Greater than 30 Minutes - all stable
[2019-05-22 09:11] VITALS: BP 158/86
[2019-05-22] MEDS: ENOXAPARIN SODIUM INJ 40 MG/0.4 ML DISP.SYRIN SUBCUT SCH (09:15)
[2019-05-22] MEDS: LACTOBACILLUS ACIDOPHILUS 250 MG TAB PO SCH (09:17)
[2019-05-22] MEDS: PREDNISONE 20 MG TABLET PO SCH (09:17)
[2019-05-22] MEDS: NICOTINE 21 MG/24 HR PATCH.TD24 TD SCH (09:17)
== END 2019-05-22 11:44 | disposition home or self-care (01) ==
LOC: ER 19:46 → EH 22:36 → INTOOBSV 22:36 → 5 23:43
PROVIDERS: ADMIT Family Medicine; ATTEND Family Medicine
DX: L03.011 Cellulitis of right finger (principal); E78.5 Hyperlipidemia, unspecified; I96 Gangrene, not elsewhere classified; S60.422A Blister (nonthermal) of right middle finger, initial encounter; X58.XXXA Exposure to other specified factors, initial encounter; S60.462A Insect bite (nonvenomous) of right middle finger, initial encounter; W57.XXXA Bitten or stung by nonvenomous insect and other nonvenomous arthropods, initial encounter; F17.200 Nicotine dependence, unspecified, uncomplicated; Z79.899 Other long term (current) drug therapy; Z88.6 Allergy status to analgesic agent; D72.829 Elevated white blood cell count, unspecified
CPT/HCPCS: 99284; 96365; 36415 ×2; 87040; 87070; 87205; 82962 ×3; 85025 ×2; 86140; 80053 ×2; 73130; G0378 ×3; A9270 ×7; J0295 ×3; J1650 ×3; J7050 ×2; J7512

== ENCOUNTER → 2019-08-21 | Outpatient (CLI) | payer MEDICARE ==
--- NOTE | 2019-08-21 12:48 | WOMENS IMAGING REPORT ---
EXAM DESCRIPTION: BONE DENSITY HIP/SPINE COMPLETED DATE/TIME: 08/21/2019 8:48 am REASON FOR STUDY: Z78.0 BONE DENSITY I10 ESSENTIAL (PRIMARY) HYPERTENSION Z12.31 ENCNTR SCREEN RICHAR MOGRAM FOR MALIGNANT NEOPLASM OF CLAIRE Z78.0 ASYMPTOMATIC MENOPAUSAL STATE COMPARISON: 07/17/2017 TECHNIQUE: Dual-Energy X-ray Absorptiometry (DEXA) of the AP Spine and Hip. LIMITATIONS: None. FINDINGS: LUMBAR SPINE: The bone mineral density (BMD) measured from L1-L4 in the AP projection correlates with a T-score of -3.5, which is osteoporosis as defined by the World Health Organization. BMD Change vs Baseline: -5.8% HIP: The bone mineral density (BMD) measured in the left hip hip correlates with a T-score of -3.2 in the femoral neck, which is osteoporosis as defined by the World Health Organization. BMD Change vs Baseline: +1.4% 10 year Fracture Risk Assessment: Major Osteoporotic Fracture: Not available. Hip Fracture: Not available. IMPRESSION: 1. LUMBAR SPINE WHO CLASSIFICATION: Osteoporosis 2. HIP WHO CLASSIFICATION: Osteoporosis OVERALL ASSESSMENT: WHO CLASSIFICATION: Osteoporosis COMMENT: The World Health Organization defines low BMD as follows: T-score: Normal: Greater than -1.0 Osteopenia: Between -1.0 and -2.5 Osteoporosis: Less than -2.5 without fractures Established osteoporosis: Less than -2.5 with fractures In general, you may wish to consider: Diagnosis Treatment Follow-up DEXA Normal BMD Prevention 2-3 years Osteopenia Prevention/Therapy 1-2 years Osteoporosis Therapy Yearly TECHNICAL DOCUMENTATION: JOB ID: [id number] [employer]- All Rights Reserved Reading location - IP/workstation name: [email or web address]
--- NOTE | 2019-08-22 16:29 | WOMENS IMAGING REPORT ---
EXAM DESCRIPTION: 3D SCREENING MAMMO BILAT COMPLETED DATE/TIME: 08/21/2019 8:48 am REASON FOR STUDY: Z12.31 SCREENING MAMMO I10 ESSENTIAL (PRIMARY) HYPERTENSION Z12.31 ENCNTR SCREEN MAMMOGRAM FOR MALIGNANT NEOPLASM OF CLAIRE Z78.0 ASYMPTOMATIC MENOPAUSAL STATE COMPARISON: 2016 EXAM PARAMETERS: Views: Standard craniocaudal and mediolateral oblique views of each breast recorded using digital acquisition and breast tomosynthesis. Read with the assistance of CAD. .[facility] - [employer] Compliance Technician Version 9.2 LIMITATIONS: None. FINDINGS: No suspicious masses, suspicious calcifications or architectural distortion. No areas of c oncern. IMPRESSION: NEGATIVE MAMMOGRAM. BIRADS 1. BREAST DENSITY: b. There are scattered areas of fibroglandular density. BIRAD: ASSESSMENT: 1 NEGATIVE RECOMMENDATION: ROUTINE SCREENING COMMENT: The patient has been notified of the results by letter per MQSA requirements. Additional no tification policies are in place for contacting patient with suspicious or incomplete findings. Quality ID #[id number]: The [employer] recommends an annual screening mammogram for women aged 40 years or over. This facility utilizes a reminder system to ensure that all patients receive reminder letters, and/or direct phone calls for appointments. This includes reminders for routine scr eening mammograms, diagnostic mammograms, or other Breast Imaging Interventions when appropriate. Th is patient will be placed in the appropriate reminder system. TECHNICAL DOCUMENTATION: FINDING NUMBER: (1) ASSESSMENT: (1) JOB ID: [id number] [employer]- All Rights Reserved Reading location - IP/workstation name: [email or web address]
== END ==
LOC: SP 07:40
PROVIDERS: ATTEND Physician Assistant
DX: Z12.31 Encounter for screening mammogram for malignant neoplasm of breast (principal); Z78.0 Asymptomatic menopausal state
CPT/HCPCS: 77063; 77067; 77080

== ENCOUNTER → 2020-05-12 | Outpatient (CLI) | payer MEDICARE ==
--- NOTE | 2020-05-12 10:49 | RADIOLOGY REPORT (SQ) ---
EXAM DESCRIPTION: HIP RIGHT AP/LATERAL IMAGES COMPLETED DATE/TIME: 05/12/2020 10:26 am REASON FOR STUDY: PAIN IN RT HIP M25.551 PAIN IN RIGHT HIP COMPARISON: None. NUMBER OF VIEWS: Two views. TECHNIQUE: AP and frog-leg view of the right hip. LIMITATIONS: None. FINDINGS: MINERALIZATION: Normal. RIGHT HIP: No fracture or dislocation. No worrisome bone lesions. No contour deformity. No joint sp alf narrowing. OPPOSITE HIP: No fracture or dislocation. No worrisome bone lesions. SOFT TISSUES: No findings. OTHER: No other significant finding. IMPRESSION: NEGATIVE STUDY OF THE RIGHT HIP. NO EXPLANATION FOR PAIN. TECHNICAL DOCUMENTATION: JOB ID: [id number] [employer]- All Rights Reserved Reading location - IP/workstation name: [email or web address]
== END ==
LOC: OD 10:16
PROVIDERS: ATTEND Physician Assistant
DX: M25.551 Pain in right hip (principal)